=== PATIENT | female | born 1945 | race Caucasian/White ===

== ENCOUNTER 2017-09-08 22:36 | Observation (INO) | payer OTHER ==
[~2017-09-08] VITALS: Ht 160 cm; Wt 69.9 kg
[~2017-09-08 22:36] MED LIST: ADVIL200 MG PO; ALAVERT10 MG PO; ALPRAZOLAM0.25 M2 PO; ANTIVERT25 MG PO; ASPIR-MOX IB T325 MG PO; ASPIRIN325 MG PO; Aspirin PO; BENADRYL25 MG PO; Bystolic PO; CLOPIDOGREL75 MG; DOXYCYCLINE HY100 MG PO; ECOTRIN325 MG PO; FISH OIL 1,0001 EAC7 PO; FLONASE16 G1 BOTH NARES; FORTAMET500 M1 PO; HYCODAN SYRUP480 ML PO; LEVEMIR FL100 UNITS/ SC; LEVIMIR SQ; LORTAB 5-325 M1 EACH PO; LOSARTAN POTASS50 MG PO; METOPROLOL TART25 MG PO; OCEAN NASAL 0.645 ML BOTH NARES; ONE DAILY ESSE1 EACH PO; PLAVIX75 MG PO; PREDNISONE50 MG PO; PROAIR HFA8.5 GM IH; PROVENTIL,2.5 MG/0.5 IH; PROVENTIL,2.5 MG/3 M IH; Proair HFA IH; SIMVASTATIN20 MG PO; SIMVASTATIN40 MG PO; SPIRIVA1 INHALATI IH; SYMBICORT60 INHALAT IH; THEO-24200 MG PO; THEO-DUR,THEOC100 MG PO; THEO-DUR,THEOC200 MG PO; THEOPHYLLINE A300 M1 PO; Vicodin,Norco 5/325 PO; Vytorin 10/40 PO; Xanax PO; ZOCOR40 MG PO; ZOFRAN4 MG PO
[2017-09-08 23:14] LABS: BASOPHIL (%) 0.8 % (0-1); BASOPHIL COUNT 0.1 K/uL (0-0.1); EOSINOPHIL (%) 2.8 % (0-5); EOSINOPHIL COUNT 0.3 K/uL (0-0.3); HEMATOCRIT 44.1 % (36.0-46.0); HEMOGLOBIN 14.4 G/DL (11.9-15.5); IMMATURE GRANULOCYTE (%) 0.3 % (0.0-0.7); LYMPHOCYTE (%) 21.7 % (15-42); LYMPHOCYTE COUNT 2.1 K/uL (1.0-2.8); MCHC 32.7 G/DL (30.0-36.0); MCV 88.9 FL (83-99); MONOCYTE (%) 7.3 % (3-12); MONOCYTE COUNT 0.7 K/uL (0-0.8); NEUTROPHIL (%) 67.1 % (45-76); NEUTROPHIL COUNT 6.4 K/uL (1.8-6.4); PLATELET COUNT 270 K/uL (156-360); RBC DIS.WIDTH-CV 13.7 % (11.8-14.6); RBC DIS.WIDTH-SD 44.4 % (39-53); RED BLOOD COUNT 4.96 M/uL (3.80-5.20); WHITE BLOOD COUNT 9.6 K/uL (4.1-10.2)
[2017-09-08 23:22] LABS: PTT 31.3 SEC (25-37)
[2017-09-08 23:23] LABS: AMYLASE 104 IU/L (1-118); CHLORIDE 97 mEq/L (99-109); POTASSIUM 4.9 mEq/L (3.7-5.4); SODIUM 137 mEq/L (136-147)
[2017-09-08 23:25] LABS: GLUCOSE 100 mg/dL (70-99)
[2017-09-08 23:28] LABS: SERUM ETHYL ALCOHOL < 10 mg/dL
[2017-09-08 23:29] LABS: CREATININE 1.1 mg/dL (0.6-1.3); GFR ESTIMATE (CALCULATED) 52 mL/min/
[2017-09-08 23:30] LABS: UREA NITROGEN (BUN) 23 mg/dL (9-23)
[2017-09-08 23:32] LABS: LIPASE 27 U/L (1.0-51.0)
[2017-09-08 23:35] LABS: HDL CHOLESTEROL 65 MG/DL (Desirable>=50); LDL CHOLESTEROL 140 mg/dL (Desirable<100); NON-HDL CHOLESTEROL 165 mg/dL (Desirable<160); TOTAL CHOLESTEROL 230 mg/dL (Desirable<200); TRIGLYCERIDES 123 MG/DL (Normal: <150)
[2017-09-08 23:35] LABS: TROP-I INTERPRETATION NEGATIVE; TROPONIN-I 0.01 ng/mL (0.0-0.30)
[2017-09-09 01:34] LABS: CHLORIDE 102 mEq/L (99-109); POTASSIUM 4.4 mEq/L (3.7-5.4); SODIUM 138 mEq/L (136-147)
[2017-09-09 01:36] LABS: GLUCOSE 133 mg/dL (70-99)
[2017-09-09 01:40] LABS: GFR ESTIMATE (CALCULATED) 58 mL/min/; UREA NITROGEN (BUN) 22 mg/dL (9-23)
[2017-09-09] MEDS ORDERED: LEVEMIR FL100 UNIT/1 SC (02:11)
[2017-09-09] MEDS ORDERED: VENTOLIN HFA18 GM IH (02:12)
[2017-09-09 03:02] LABS: APPEARANCE SL.HAZY ((CLEAR)); BILIRUBIN NEGATIVE; BLOOD SMALL; COLOR YELLOW ((YELLOW)); GLUCOSE (STRIP) NEGATIVE; KETONES NEGATIVE; LEUKOCYTES SMALL; NITRITE NEGATIVE; PROTEIN (STRIP) 30; UROBILINOGEN 0.2 MG/DL (0.2-1.0)
[2017-09-09 03:09] LABS: BACTERIA RARE /HPF; EPITHELIAL CELLS 1+ /HPF; MUCUS TRACE /LPF; RED BLOOD CELLS 0-5 /HPF (0-5); UCUL ADDED? NO; WHITE BLOOD CELLS 0-5 /HPF (0-5)
[2017-09-09 04:49] VITALS: BP 124/59
[2017-09-09 04:53] LABS: BENZODIAZEPINES, URINE SCREEN Negative (200 ng/mL)
[2017-09-09 07:53] VITALS: BP 118/58
[2017-09-09 10:03] LABS: HEMOGLOBIN A1c (GLYCOHEMOGLOB) 6.7 % (Below 5.7)
[2017-09-09 11:52] VITALS: BP 121/57
[2017-09-09 16:00] VITALS: BP 137/87
[2017-09-09 20:00] VITALS: BP 162/72
[2017-09-10 00:26] VITALS: BP 149/70
[2017-09-10 04:19] VITALS: BP 136/76
[2017-09-10 06:28] LABS: BASOPHIL (%) 0.1 % (0-1); EOSINOPHIL (%) 0 % (0-5); HEMATOCRIT 40.2 % (36.0-46.0); IMMATURE GRANULOCYTE (%) 0.4 % (0.0-0.7); LYMPHOCYTE (%) 10.8 % (15-42); LYMPHOCYTE COUNT 0.8 K/uL (1.0-2.8); MCH 28.8 PG (29.0-34.0); MCHC 32.3 G/DL (30.0-36.0); MCV 89.1 FL (83-99); MONOCYTE (%) 3.1 % (3-12); MONOCYTE COUNT 0.2 K/uL (0-0.8); NEUTROPHIL (%) 85.6 % (45-76); NEUTROPHIL COUNT 6.4 K/uL (1.8-6.4); PLATELET COUNT 244 K/uL (156-360); RBC DIS.WIDTH-CV 13.7 % (11.8-14.6); RBC DIS.WIDTH-SD 44.8 % (39-53); RED BLOOD COUNT 4.51 M/uL (3.80-5.20); WHITE BLOOD COUNT 7.5 K/uL (4.1-10.2)
[2017-09-10 06:49] LABS: CHLORIDE 103 MEQ/L (99-109); GFR ESTIMATE (CALCULATED) 58 mL/min/; GLUCOSE 197 mg/dL (70-99); POTASSIUM 5.2 MEQ/L (3.7-5.4); SODIUM 136 MEQ/L (136-147); UREA NITROGEN (BUN) 30 mg/dL (9-23)
[2017-09-10 07:33] VITALS: BP 136/82
[2017-09-10 11:07] VITALS: BP 157/74
[2017-09-10] MEDS ORDERED: MEDROL DOSEPAK4 MG PO (12:59)
[2017-09-10] MEDS ORDERED: LEVAQUIN750 MG PO (12:59)
[2017-09-10] MEDS ORDERED: DOCUSATE SODIU100 MG PO (12:59)
[2017-09-10] MEDS ORDERED: FLONASE16 G1 BOTH NARES (13:00)
== END 2017-09-10 17:32 | disposition home or self-care (01) ==
LOC: EME 22:36 → 5WEST 09-09 03:16 → EDOF 09-09 03:16 → ENRESERV 09-09 03:16 → EDOF 09-09 03:16 → ENRESERV 09-09 03:30 → 5WEST 09-09 04:13
PROVIDERS: Emergency Medicine; Hospitalist; Internal Medicine
DX: I63.8 Other cerebral infarction (principal); J44.1 Chronic obstructive pulmonary disease with (acute) exacerbation; R09.02 Hypoxemia; I10 Essential (primary) hypertension; J01.90 Acute sinusitis, unspecified; N39.0 Urinary tract infection, site not specified; I95.9 Hypotension, unspecified; Z86.73 Personal history of transient ischemic attack (TIA), and cerebral infarction without residual deficits; I25.10 Atherosclerotic heart disease of native coronary artery without angina pectoris; I25.2 Old myocardial infarction; T82.858D Stenosis of other vascular prosthetic devices, implants and grafts, subsequent encounter; Z95.5 Presence of coronary angioplasty implant and graft; F17.210 Nicotine dependence, cigarettes, uncomplicated; E11.319 Type 2 diabetes mellitus with unspecified diabetic retinopathy without macular edema; E78.5 Hyperlipidemia, unspecified; G89.29 Other chronic pain; I27.20 Pulmonary hypertension, unspecified; Z98.890 Other specified postprocedural states; Z79.02 Long term (current) use of antithrombotics/antiplatelets; Z79.82 Long term (current) use of aspirin; Z79.4 Long term (current) use of insulin; Z83.3 Family history of diabetes mellitus; Z82.0 Family history of epilepsy and other diseases of the nervous system
CPT/HCPCS: 70450; 70496; 70498; 70551; 80047; 80048; 80061; 80306 90; 81003; 82150; 82948; 83036; 83690; 84484; 84999; 85025; 85610; 85730; 86850; 86900; 86901; 93005; 93306; 94640; 94640 76; 94760; 94799; 99202; 99281; 99285; G0378; G0480; G8978 GP CI; G8979 GP CH; G8980 GP CI; G8987 GO CI; G8988 GO CH; G8989 GO CI; J1644; J1815; J1956; J2060; J2405; J2930; J7030; J7512

== ENCOUNTER 2017-09-29 15:06 | Inpatient (IN) | payer OTHER ==
[~2017-09-29] VITALS: Ht 162.6 cm; Wt 66.6 kg
[~2017-09-29 15:06] MED LIST changes: +DOCUSATE SODIU100 MG PO; +LEVAQUIN750 MG PO; +LEVEMIR FL100 UNIT/1 SC; +MEDROL DOSEPAK4 MG PO; +VENTOLIN HFA18 GM IH
[2017-09-29 16:03] LABS: BASOPHIL (%) 0.6 % (0-1); BASOPHIL COUNT 0.1 K/uL (0-0.1); EOSINOPHIL (%) 2.6 % (0-5); EOSINOPHIL COUNT 0.2 K/uL (0-0.3); HEMATOCRIT 40.6 % (36.0-46.0); HEMOGLOBIN 13.4 G/DL (11.9-15.5); IMMATURE GRANULOCYTE (%) 0.4 % (0.0-0.7); LYMPHOCYTE (%) 20.8 % (15-42); LYMPHOCYTE COUNT 1.7 K/uL (1.0-2.8); MCH 29.4 PG (29.0-34.0); MONOCYTE (%) 6.9 % (3-12); MONOCYTE COUNT 0.6 K/uL (0-0.8); NEUTROPHIL (%) 68.7 % (45-76); NEUTROPHIL COUNT 5.4 K/uL (1.8-6.4); PLATELET COUNT 240 K/uL (156-360); RBC DIS.WIDTH-CV 13.9 % (11.8-14.6); RED BLOOD COUNT 4.56 M/uL (3.80-5.20); WHITE BLOOD COUNT 7.9 K/uL (4.1-10.2)
[2017-09-29 16:11] LABS: ALBUMIN 3.4 g/dL (3.2-4.8); CHLORIDE 99 mEq/L (99-109); POTASSIUM 4.4 mEq/L (3.7-5.4); SODIUM 139 mEq/L (136-147)
[2017-09-29 16:13] LABS: GLUCOSE 55 mg/dL (70-99)
[2017-09-29 16:14] LABS: TOTAL PROTEIN 5.8 g/dL (6.4-8.3)
[2017-09-29 16:15] LABS: TOTAL BILIRUBIN 0.2 mg/dL (0.0-1.0)
[2017-09-29 16:17] LABS: ALKALINE PHOSPHATASE 88 IU/L (3-129); CREATININE 0.8 mg/dL (0.6-1.3); GFR ESTIMATE (CALCULATED) > 59 mL/min/
[2017-09-29 16:18] LABS: UREA NITROGEN (BUN) 15 mg/dL (9-23)
[2017-09-29 16:19] LABS: AST (GOT) 16 IU/L (2-34)
[2017-09-29 16:20] LABS: ALT (GPT) 17 IU/L (3-49)
[2017-09-29 16:21] LABS: CREATINE KINASE 83 IU/L (1-294); LIPASE 14 U/L (1.0-51.0)
[2017-09-29 16:26] LABS: TROP-I INTERPRETATION NEGATIVE; TROPONIN-I < 0.01 ng/mL (0.0-0.30)
[2017-09-29 19:27] LABS: APPEARANCE CLOUDY ((CLEAR)); BILIRUBIN NEGATIVE; BLOOD NEGATIVE; COLOR YELLOW ((YELLOW)); GLUCOSE (STRIP) NEGATIVE; KETONES NEGATIVE; LEUKOCYTES MODERATE; NITRITE NEGATIVE; PROTEIN (STRIP) 100; SPECIFIC GRAVITY 1.014 (1.000-1.030); UROBILINOGEN 0.2 MG/DL (0.2-1.0)
[2017-09-29 19:59] LABS: BACTERIA 1+ /HPF; EPITHELIAL CELLS 3+ /HPF; MUCUS 1+ /LPF; RED BLOOD CELLS 0-5 /HPF (0-5); UCUL ADDED? NO; WHITE BLOOD CELLS 0-5 /HPF (0-5)
[2017-09-29 22:50] LABS: HDL CHOLESTEROL 75 MG/DL (Desirable>=50); LDL CHOLESTEROL 111 mg/dL (Desirable<100); NON-HDL CHOLESTEROL 128 mg/dL (Desirable<160); TOTAL CHOLESTEROL 203 mg/dL (Desirable<200); TRIGLYCERIDES 85 MG/DL (Normal: <150)
[2017-09-30] VITALS (8 sets, daily range): BP systolic 120–164; BP diastolic 60–72
[2017-09-30] MEDS ORDERED: VENTOLIN HFA18 GM IH (00:23)
[2017-09-30] MEDS ORDERED: CLOPIDOGREL75 MG PO (00:24)
[2017-09-30] MEDS ORDERED: THEO-24300 MG PO (00:24)
[2017-09-30] MEDS ORDERED: SIMVASTATIN40 MG PO (00:25)
[2017-09-30 11:40] LABS: HEMOGLOBIN A1c (GLYCOHEMOGLOB) 6.9 % (Below 5.7)
[2017-10-01 03:46] VITALS: BP 126/62
[2017-10-01 06:42] LABS: BASOPHIL (%) 0.9 % (0-1); BASOPHIL COUNT 0.1 K/uL (0-0.1); EOSINOPHIL (%) 4.1 % (0-5); EOSINOPHIL COUNT 0.3 K/uL (0-0.3); HEMATOCRIT 40.6 % (36.0-46.0); HEMOGLOBIN 12.8 G/DL (11.9-15.5); IMMATURE GRANULOCYTE (%) 0.3 % (0.0-0.7); LYMPHOCYTE (%) 23.3 % (15-42); LYMPHOCYTE COUNT 1.6 K/uL (1.0-2.8); MCH 28.6 PG (29.0-34.0); MCHC 31.5 G/DL (30.0-36.0); MCV 90.8 FL (83-99); MONOCYTE (%) 8.3 % (3-12); MONOCYTE COUNT 0.6 K/uL (0-0.8); NEUTROPHIL (%) 63.1 % (45-76); NEUTROPHIL COUNT 4.3 K/uL (1.8-6.4); PLATELET COUNT 225 K/uL (156-360); RBC DIS.WIDTH-CV 13.8 % (11.8-14.6); RBC DIS.WIDTH-SD 46.4 % (39-53); RED BLOOD COUNT 4.47 M/uL (3.80-5.20); WHITE BLOOD COUNT 6.9 K/uL (4.1-10.2)
[2017-10-01 07:11] LABS: CHLORIDE 103 MEQ/L (99-109); CREATININE 0.8 MG/DL (0.6-1.3); GFR ESTIMATE (CALCULATED) > 59 mL/min/; GLUCOSE 70 mg/dL (70-99); MAGNESIUM 1.7 mg/dl (1.3-2.7); POTASSIUM 4.2 MEQ/L (3.7-5.4); SODIUM 139 MEQ/L (136-147); UREA NITROGEN (BUN) 17 mg/dL (9-23)
[2017-10-01 07:17] VITALS: BP 160/72
[2017-10-01 11:09] VITALS: BP 179/81
[2017-10-01 15:30] VITALS: BP 167/79
[2017-10-01 19:26] VITALS: BP 149/79
[2017-10-01 23:56] VITALS: BP 147/80
[2017-10-02 04:05] VITALS: BP 144/66
[2017-10-02 05:51] LABS: BASOPHIL (%) 0.2 % (0-1); EOSINOPHIL (%) 0.1 % (0-5); HEMATOCRIT 38.9 % (36.0-46.0); HEMOGLOBIN 12.7 G/DL (11.9-15.5); IMMATURE GRANULOCYTE (%) 0.2 % (0.0-0.7); LYMPHOCYTE (%) 13.6 % (15-42); LYMPHOCYTE COUNT 1.2 K/uL (1.0-2.8); MCH 29.1 PG (29.0-34.0); MCHC 32.6 G/DL (30.0-36.0); MCV 89.2 FL (83-99); MONOCYTE (%) 6.3 % (3-12); MONOCYTE COUNT 0.5 K/uL (0-0.8); NEUTROPHIL (%) 79.6 % (45-76); NEUTROPHIL COUNT 6.7 K/uL (1.8-6.4); PLATELET COUNT 225 K/uL (156-360); RBC DIS.WIDTH-CV 13.5 % (11.8-14.6); RBC DIS.WIDTH-SD 44.1 % (39-53); RED BLOOD COUNT 4.36 M/uL (3.80-5.20); WHITE BLOOD COUNT 8.5 K/uL (4.1-10.2)
[2017-10-02 06:38] LABS: CHLORIDE 100 MEQ/L (99-109); CREATININE 0.8 MG/DL (0.6-1.3); GFR ESTIMATE (CALCULATED) > 59 mL/min/; MAGNESIUM 1.7 mg/dl (1.3-2.7); POTASSIUM 4.1 MEQ/L (3.7-5.4); SODIUM 134 MEQ/L (136-147); UREA NITROGEN (BUN) 22 mg/dL (9-23)
[2017-10-02 06:39] LABS: GLUCOSE 204 mg/dL (70-99)
[2017-10-02 08:03] VITALS: BP 147/73
[2017-10-02 12:23] VITALS: BP 125/67
[2017-10-02 16:58] VITALS: BP 142/66
[2017-10-02 20:18] VITALS: BP 134/68
[2017-10-03 00:14] VITALS: BP 147/78
[2017-10-03 04:44] VITALS: BP 157/67
[2017-10-03 08:08] VITALS: BP 146/70
[2017-10-03 12:14] VITALS: BP 138/72
[2017-10-03 15:51] VITALS: BP 138/70
[2017-10-03 23:28] VITALS: BP 154/67
[2017-10-04 01:38] LABS: APPEARANCE CLEAR ((CLEAR)); BILIRUBIN NEGATIVE; BLOOD NEGATIVE; COLOR STRAW ((YELLOW)); GLUCOSE (STRIP) NEGATIVE; KETONES NEGATIVE; LEUKOCYTES TRACE; NITRITE NEGATIVE; PROTEIN (STRIP) NEGATIVE; SPECIFIC GRAVITY 1.008 (1.000-1.030); UROBILINOGEN 0.2 MG/DL (0.2-1.0)
[2017-10-04 01:40] LABS: BACTERIA NONE SEEN /HPF; EPITHELIAL CELLS RARE /HPF; MUCUS NONE SEEN /LPF; RED BLOOD CELLS 0-5 /HPF (0-5); UCUL ADDED? NO; WHITE BLOOD CELLS 0-5 /HPF (0-5)
[2017-10-04 07:40] VITALS: BP 129/71
== END 2017-10-04 15:53 | DRG 69 ==
LOC: EME 15:06 → EDOF 21:16 → 5SOUTH 21:16 → EDOF 21:16 → ENRESERV 21:17 → 5SOUTH 09-30 00:39 → ENPENDDIS 10-04 15:03 → 5SOUTH 10-04 15:53
PROVIDERS: Emergency Medicine; Hospitalist; Physician Assistant
DX: G45.9 Transient cerebral ischemic attack, unspecified (principal); J44.1 Chronic obstructive pulmonary disease with (acute) exacerbation; I10 Essential (primary) hypertension; F17.200 Nicotine dependence, unspecified, uncomplicated; I25.10 Atherosclerotic heart disease of native coronary artery without angina pectoris; E11.319 Type 2 diabetes mellitus with unspecified diabetic retinopathy without macular edema; E11.51 Type 2 diabetes mellitus with diabetic peripheral angiopathy without gangrene; E11.649 Type 2 diabetes mellitus with hypoglycemia without coma; N39.0 Urinary tract infection, site not specified; Z83.3 Family history of diabetes mellitus; Z82.0 Family history of epilepsy and other diseases of the nervous system; F41.9 Anxiety disorder, unspecified; Z79.51 Long term (current) use of inhaled steroids; Z79.82 Long term (current) use of aspirin; Z79.899 Other long term (current) drug therapy; Z86.73 Personal history of transient ischemic attack (TIA), and cerebral infarction without residual deficits; Z95.5 Presence of coronary angioplasty implant and graft; Z79.4 Long term (current) use of insulin
CPT/HCPCS: 70450; 70551; 71046; 80048; 80053; 80061; 81003; 82550; 82803; 82948; 83036; 83605; 83690; 83735; 84484; 85025; 87502; 93005; 94640; 94640 76; 94799; 97530 GO; 99202; 99281; 99285; G0378; G8978 GP CK; G8979 GP CI; G8987 GO CJ; G8988 CI; J1644; J1815; J2060; J2405; J2920

== ENCOUNTER 2017-10-13 02:26 | Emergency (ER) | payer OTHER ==
[~2017-10-13] VITALS: Ht 160 cm; Wt 65.0 kg
[~2017-10-13 02:26] MED LIST changes: +CLOPIDOGREL75 MG PO; +THEO-24300 MG PO
[2017-10-13 03:02] LABS: HEMATOCRIT 36.7 % (36.0-46.0); HEMOGLOBIN 12.1 G/DL (11.9-15.5); MCH 29.3 PG (29.0-34.0); MCV 88.9 FL (83-99); PLATELET COUNT 252 K/uL (156-360); RBC DIS.WIDTH-CV 13.9 % (11.8-14.6); RBC DIS.WIDTH-SD 45.1 % (39-53); RED BLOOD COUNT 4.13 M/uL (3.80-5.20); WHITE BLOOD COUNT 8.3 K/uL (4.1-10.2)
[2017-10-13 03:13] LABS: CHLORIDE 99 mEq/L (99-109); POTASSIUM 3.9 mEq/L (3.7-5.4); SODIUM 135 mEq/L (136-147)
[2017-10-13 03:15] LABS: GLUCOSE 118 mg/dL (70-99)
[2017-10-13 03:19] LABS: CREATININE 0.8 mg/dL (0.6-1.3); GFR ESTIMATE (CALCULATED) > 59 mL/min/
[2017-10-13 03:20] LABS: UREA NITROGEN (BUN) 20 mg/dL (9-23)
[2017-10-13 03:24] LABS: TROP-I INTERPRETATION NEGATIVE; TROPONIN-I 0.01 ng/mL (0.0-0.30)
[2017-10-13 04:11] VITALS: BP 120/69
== END 2017-10-13 04:12 | disposition home or self-care (01) ==
LOC: EME → EDBD 02:26 → EME 04:12
PROVIDERS: Emergency Medicine
DX: R09.1 Pleurisy (principal); E11.9 Type 2 diabetes mellitus without complications; Z79.4 Long term (current) use of insulin; J44.9 Chronic obstructive pulmonary disease, unspecified; F17.200 Nicotine dependence, unspecified, uncomplicated; I10 Essential (primary) hypertension; I25.2 Old myocardial infarction; Z95.5 Presence of coronary angioplasty implant and graft; Z86.73 Personal history of transient ischemic attack (TIA), and cerebral infarction without residual deficits
CPT/HCPCS: 71046; 80048; 84484; 85027; 93005; 99281; 99283